=== PATIENT | female | born 1975 | race African-American/Black ===

== ENCOUNTER 2017-11-23 09:23 | Emergency (ER) | payer OTHER ==
[~2017-11-23] VITALS: Ht 167.6 cm; Wt 120.2 kg
[~2017-11-23 09:23] MED LIST: ADDERALL20 MG PO; CLARITIN10 MG PO; DAILY MULTIVIT1 EAC4 PO; DAILY MULTIVIT1 EAC6 PO; FLONASE16 G1 BOTH NARES; HYDROCORTISONE28 G2 TP; LISINOPRIL20 MG PO; MOTRIN800 MG PO; PROBIOTIC1 EAC3 PO
[2017-11-23] MEDS ORDERED: FLEXERIL5 MG PO (09:50)
[2017-11-23 10:12] VITALS: BP 158/103
== END 2017-11-23 10:13 | disposition home or self-care (01) ==
LOC: EME 09:23
DX: S13.4XXA Sprain of ligaments of cervical spine, initial encounter (principal); M54.6 Pain in thoracic spine; M54.5 Low back pain; V49.60XA Unspecified car occupant injured in collision with unspecified motor vehicles in traffic accident, initial encounter; Y92.410 Unspecified street and highway as the place of occurrence of the external cause; I10 Essential (primary) hypertension
CPT/HCPCS: 99281; 99283

== ENCOUNTER 2018-02-27 07:15 | Day surgery (SDC) | payer OTHER ==
[~2018-02-27] VITALS: Ht 167.6 cm; Wt 113.4 kg
[~2018-02-27 07:15] MED LIST changes: +FLEXERIL5 MG PO; +IRON325 M1 PO; -LISINOPRIL20 MG PO; +PROTONIX40 MG PO; +VENTOLIN HFA18 GM IH; +VITAMIN C500 M1 PO; +WELLBUTRIN75 MG PO; +ZESTORETIC 20-1 EAC2 PO; +ZESTRIL10 MG PO
[2018-02-27] MEDS ORDERED: FOLBIC RF TABL1 EACH PO (07:51)
[2018-02-27] MEDS ORDERED: OMEGA-3100 MG PO (07:51)
[2018-02-27 07:54] LABS: BASOPHIL (%) 0.3 % (0-1); EOSINOPHIL (%) 1.5 % (0-5); EOSINOPHIL COUNT 0.1 K/uL (0-0.3); HEMATOCRIT 34.4 % (36.0-46.0); HEMOGLOBIN 11.6 G/DL (11.9-15.5); IMMATURE GRANULOCYTE (%) 0.3 % (0.0-0.7); LYMPHOCYTE (%) 25.2 % (15-42); LYMPHOCYTE COUNT 2.4 K/uL (1.0-2.8); MCH 29.1 PG (29.0-34.0); MCHC 33.7 G/DL (30.0-36.0); MCV 86.4 FL (83-99); MONOCYTE (%) 6.8 % (3-12); MONOCYTE COUNT 0.6 K/uL (0-0.8); NEUTROPHIL (%) 65.9 % (45-76); NEUTROPHIL COUNT 6.2 K/uL (1.8-6.4); PLATELET COUNT 329 K/uL (156-360); RBC DIS.WIDTH-CV 12.4 % (11.8-14.6); RBC DIS.WIDTH-SD 39.2 % (39-53); RED BLOOD COUNT 3.98 M/uL (3.80-5.20); WHITE BLOOD COUNT 9.4 K/uL (4.1-10.2)
[2018-02-27 08:57] VITALS: BP 116/67
[2018-02-27] MEDS ORDERED: ENDOCET 5-3251 EACH PO (09:10)
[2018-02-27] MEDS ORDERED: IBUPROFEN800 MG PO (09:10)
[2018-02-27 12:15] VITALS: BP 113/60
[2018-02-27 13:15] VITALS: BP 120/67
[2018-02-27 15:25] VITALS: BP 132/73
[2018-02-27 17:04] VITALS: BP 137/91
== END 2018-02-27 17:00 | disposition home or self-care (01) ==
LOC: SDC 07:15
PROVIDERS: Obstetrics & Gynecology Gynecology
PROC: 0UT74ZZ Resection of Bilateral Fallopian Tubes, Percutaneous Endoscopic Approach (ICD-10-PCS; principal; 2018-02-27)
PROC: 0UT94ZZ Resection of Uterus, Percutaneous Endoscopic Approach (ICD-10-PCS; principal; 2018-02-27)
PROC: 04L Lower Arteries, Occlusion (ICD-10-PCS; principal; 2018-02-27)
PROC: 04L Lower Arteries, Occlusion (ICD-10-PCS; principal; 2018-02-27)
DX: D25.9 Leiomyoma of uterus, unspecified (principal); N72 Inflammatory disease of cervix uteri; N92.0 Excessive and frequent menstruation with regular cycle; N94.6 Dysmenorrhea, unspecified; I10 Essential (primary) hypertension; E03.9 Hypothyroidism, unspecified; J45.909 Unspecified asthma, uncomplicated; K21.9 Gastro-esophageal reflux disease without esophagitis; N99.4 Postprocedural pelvic peritoneal adhesions
CPT/HCPCS: 84702; 85025; 86850; 86870; 86900; 86901; 86920; 88307; J0131; J0690; J1100; J1170; J1885; J2001; J2250; J2405; J2710; J3010; J3475; J7643; S0020